=== PATIENT | male | born 1960 | race Caucasian/White ===

== ENCOUNTER 2019-02-01 21:06 | Emergency (ER) | payer MEDICAID ==
[~2019-02-01] VITALS: Ht 175.3 cm; Wt 96.2 kg
[2019-02-01] MEDS ORDERED: ABILIFY 5 MG TAB5 MG PO (21:17)
[2019-02-01] MEDS ORDERED: SEROQUEL XR 30300 M1 PO (21:17)
[2019-02-01] MEDS ORDERED: HYDROCODONE-AP1 EAC6 PO (21:45)
[2019-02-01 22:17] VITALS: BP 140/92
== END 2019-02-01 22:20 | disposition home or self-care (01) ==
LOC: M.ERS 21:06
DX: S63.273A Dislocation of unspecified interphalangeal joint of left middle finger, initial encounter (principal); F17.210 Nicotine dependence, cigarettes, uncomplicated; W01.0XXA Fall on same level from slipping, tripping and stumbling without subsequent striking against object, initial encounter; Y92.89 Other specified places as the place of occurrence of the external cause; Y93.89 Activity, other specified; Y99.8 Other external cause status

== ENCOUNTER 2020-07-09 15:16 | Emergency (ER) | payer MEDICAID ==
[~2020-07-09] VITALS: Ht 175.3 cm; Wt 92.1 kg
[~2020-07-09 15:16] MED LIST: ABILIFY 5 MG TAB5 MG PO; HYDROCODONE-AP1 EAC6 PO; SEROQUEL XR 30300 M1 PO
[2020-07-09] MEDS ORDERED: SEROQUEL400 MG PO (15:27)
[2020-07-09] MEDS ORDERED: SEROQUEL XR400 MG PO (15:27)
[2020-07-09 15:58] LABS: ABSOLUTE BASOPHILS 0.1 thou/uL (0.0-0.2); ABSOLUTE EOSINOPHILS 0.2 thou/uL (0.0-0.7); ABSOLUTE LYMPHOCYTES 0.6 thou/uL (0.8-5.3); ABSOLUTE MONOCYTES 0.7 thou/uL (0.0-1.2); ABSOLUTE NEUTROPHILS 6.4 thou/uL (1.6-8.1); BASOPHILS 0.9 %; HEMATOCRIT 43.4 % (42.0-52.0); HEMOGLOBIN 15.5 gm/dL (14.0-18.0); LYMPHOCYTES 7.2 %; MCH 32.4 pg (26.0-34.0); MCHC 35.8 g/dL (28.0-37.0); MCV 90.5 fL (80.0-100.0); MONOCYTES 8.7 %; MPV 7.2 fl. (7.2-11.1); NUCLEATED RBCS 0 /100WBC; PLATELET COUNT* 261 thou/uL (150-400); POLYS 81.2 %; RBC 4.79 mil/uL (4.50-6.00); RDW-CV 13.4 % (10.5-14.5); WBC 7.9 thou/uL (4.0-11.0)
[2020-07-09 16:03] LABS: CALCIUM 8.8 mg/dL (8.5-10.1); POTASSIUM 3.8 mmol/L (3.5-5.1)
[2020-07-09 16:13] LABS: ALBUMIN 3.4 g/dL (3.4-5.0); TOTAL BILIRUBIN 0.5 mg/dL (<0.1-1.0); TOTAL PROTEIN 8.3 g/dL (6.4-8.2)
[2020-07-09 16:40] LABS: BE 1.1 mmol/L (-2 to +3); PCO2 36.8 mmHg (35.0-45.0); pH 7.446 (7.340-7.450)
[2020-07-09 16:44] LABS: PO2 56.3 mmHg (75.0-100.0)
[2020-07-09] MEDS ORDERED: VENTOLIN HFA 1818 GM INH (17:26)
[2020-07-09] MEDS ORDERED: ZPAK PO (17:26)
[2020-07-09] MEDS ORDERED: MEDROLDOSEPACK PO (17:26)
[2020-07-09 17:30] VITALS: BP 132/85
--- NOTE | 2020-07-10 10:39 | EKG ---
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[facility] : 1960 Requested By: Christen Franz Order Number: [id number] MD: Darren Beth Measurements Intervals [place] Rate: 107 P: -39 [place]: 138 QRS: -71 QRSD: 84 T: 75 QT: 317 QTc: 423 Interpretive Statements Sinus tachycardia Left anterior fascicular block Abnormal R-wave progression, early transition Minimal ST depression Baseline wander in lead(s) V2,V4 No previous ECG available for comparison Electronically Signed On 07-10-2020 10:39:17 CDT by Darren Beth [email or web address] <ELECTRONICALLY SIGNED> By: Darren Beth MD, FAC 07/10/20 1039 1537 1537 Darren Beth MD, [facility] /EPI
== END 2020-07-09 17:30 | disposition left against medical advice (07) ==
LOC: M.ERS 15:16
PROVIDERS: Nurse Practitioner Family
DX: R09.02 Hypoxemia (principal); R06.03 Acute respiratory distress; F20.0 Paranoid schizophrenia; F17.210 Nicotine dependence, cigarettes, uncomplicated; Z20.828 Contact with and (suspected) exposure to other viral communicable diseases

== ENCOUNTER 2020-07-14 08:46 | Emergency (ER) | payer MEDICAID ==
[~2020-07-14] VITALS: Ht 175.3 cm; Wt 96.2 kg
[~2020-07-14 08:46] MED LIST changes: +MEDROLDOSEPACK PO; +SEROQUEL XR400 MG PO; +SEROQUEL400 MG PO; +VENTOLIN HFA 1818 GM INH; +ZPAK PO
[2020-07-14] MEDS ORDERED: NEBULIZER MISCELL ×2 (09:34→09:57)
[2020-07-14] MEDS ORDERED: ALBUTEROL2.5 MG/3 M IH (09:34)
[2020-07-14] MEDS ORDERED: PREDNISONE 20 M20 M1 PO (09:34)
[2020-07-14 10:10] VITALS: BP 118/79
--- NOTE | 2020-07-14 16:14 | EKG ---
[place] [address] ELECTROCARDIOGRAM REPORT Name: BEN MOSESTRAM Kimberlyn [facility] [id number] Admission: 07/14/20 Attend Phys: Discharge: 07/14/20 Date of : 64 Date of Service: 07/14/20 0854 Report #: [id number] THIS REPORT FOR: //name// [facility] ED Test Date: 2020-07-14 Test Time: 08:54:52 Pat Name: ELLY MOSES Department: Room: Gender: [employer]: CCD : 1960 Requested By: Mariano Torres Order Number: [id number] Reading MD: Donald Pinon Measurements Intervals [place] Rate: 87 P: 2 [place]: 136 QRS: -56 QRSD: 90 T: 30 QT: 356 QTc: 429 Interpretive Statements Sinus rhythm Left anterior fascicular block Abnormal R-wave progression, early transition Baseline wander in lead(s) II,aVF Compared to ECG 07/09/2020 15:37:28 Sinus tachycardia no longer present ST (T wave) deviation no longer present Electronically Signed On 07-14-2020 16:14:15 CDT by Donald Pinon [email or web address] <ELECTRONICALLY SIGNED> By: Donald Pinon MD, [facility] 07/14/20 1614 0854 0854 Donald Pinon MD, FAC /EPI
== END 2020-07-14 10:10 | disposition home or self-care (01) ==
LOC: M.ERS 08:46
DX: J44.1 Chronic obstructive pulmonary disease with (acute) exacerbation (principal); F20.0 Paranoid schizophrenia; F17.210 Nicotine dependence, cigarettes, uncomplicated; Z20.828 Contact with and (suspected) exposure to other viral communicable diseases

== ENCOUNTER 2020-12-13 16:41 | Emergency (ER) | payer MEDICAID ==
[~2020-12-13] VITALS: Ht 175.3 cm; Wt 104.3 kg
[~2020-12-13 16:41] MED LIST changes: +ALBUTEROL2.5 MG/3 M IH; +NEBULIZER MISCELL; +PREDNISONE 20 M20 M1 PO
[2020-12-13 17:58] VITALS: BP 150/78
== END 2020-12-13 17:59 | disposition home or self-care (01) ==
LOC: M.ERS 16:41
DX: M79.644 Pain in right finger(s) (principal); F17.210 Nicotine dependence, cigarettes, uncomplicated